=== PATIENT | female | born 2000 | race Caucasian/White ===

== ENCOUNTER 2021-03-28 11:14 | Emergency (ER) | payer OTHER ==
[~2021-03-28] VITALS: Ht 175.2 cm; Wt 108.9 kg
[~2021-03-28 11:14] MED LIST: AUGMENTIN 400 M1 CTB PO; CIPRODEX 0.3%-7.5 ML OT; KEFLEX250 MG/5 M PO
[2021-03-28] MEDS ORDERED: BALZIVA PO (11:33)
== END 2021-03-28 14:15 | disposition left against medical advice (07) ==
LOC: ED 11:14
DX: R06.02 Shortness of breath (principal); Z53.21 Procedure and treatment not carried out due to patient leaving prior to being seen by health care provider